=== PATIENT | female | born 1990 | race Two or more races ===

== ENCOUNTER 2017-10-26 00:34 | Emergency (ER) | payer OTHER ==
[~2017-10-26] VITALS: Ht 165.1 cm; Wt 59.0 kg
[~2017-10-26 00:34] MED LIST: GILTUSS TR TAB1 EACH PO; PROVENTIL3 ML/2.5 M IH; ZITHROMAX500 MG PO
[2017-10-26] MEDS ORDERED: PHENAGIL CH TA1 EACH PO (03:18)
== END 2017-10-26 03:37 | disposition home or self-care (01) ==
LOC: ER 00:34
DX: B34.9 Viral infection, unspecified (principal); R50.9 Fever, unspecified

== ENCOUNTER 2018-02-08 16:32 | Emergency (ER) | payer OTHER ==
[~2018-02-08] VITALS: Ht 167.6 cm; Wt 59.0 kg
[~2018-02-08 16:32] MED LIST changes: +PHENAGIL CH TA1 EACH PO
== END 2018-02-09 00:53 | disposition home or self-care (01) ==
LOC: ER 16:32
DX: K29.70 Gastritis, unspecified, without bleeding (principal); K59.09 Other constipation

== ENCOUNTER 2018-02-19 17:23 | Emergency (ER) | payer OTHER ==
[~2018-02-19] VITALS: Ht 167.6 cm; Wt 59.0 kg
== END 2018-02-19 21:53 | disposition home or self-care (01) ==
LOC: ER 17:23
DX: B34.9 Viral infection, unspecified (principal); R11.2 Nausea with vomiting, unspecified; E16.1 Other hypoglycemia

== ENCOUNTER 2018-08-29 21:13 | Emergency (ER) | payer OTHER ==
[~2018-08-29] VITALS: Ht 157.5 cm; Wt 65.8 kg
== END 2018-08-29 23:30 | disposition home or self-care (01) ==
LOC: ER 21:13
DX: S93.402A Sprain of unspecified ligament of left ankle, initial encounter (principal); S90.32XA Contusion of left foot, initial encounter; X50.3XXA Overexertion from repetitive movements, initial encounter; Y93.89 Activity, other specified; Y92.098 Other place in other non-institutional residence as the place of occurrence of the external cause; Y99.8 Other external cause status

== ENCOUNTER 2019-01-07 14:20 | Emergency (ER) | payer OTHER ==
[~2019-01-07] VITALS: Ht 167.6 cm; Wt 72.6 kg
== END 2019-01-07 20:19 | disposition home or self-care (01) ==
LOC: ER 14:20
DX: J32.8 Other chronic sinusitis (principal)

== ENCOUNTER 2019-08-23 12:28 | Emergency (ER) | payer OTHER ==
[~2019-08-23] VITALS: Ht 167.6 cm; Wt 72.6 kg
[2019-08-23] MEDS ORDERED: COLD & FLU REL180 ML (12:35)
== END 2019-08-23 14:30 | disposition home or self-care (01) ==
LOC: ER 12:28
DX: J22 Unspecified acute lower respiratory infection (principal)

== ENCOUNTER 2020-05-16 16:39 | Emergency (ER) | payer OTHER ==
[~2020-05-16] VITALS: Ht 167.6 cm; Wt 68.0 kg
[~2020-05-16 16:39] MED LIST changes: +COLD & FLU REL180 ML
== END 2020-05-16 19:36 | disposition home or self-care (01) ==
LOC: ER 16:39
DX: M62.830 Muscle spasm of back (principal); R10.32 Left lower quadrant pain; Z03.818 Encounter for observation for suspected exposure to other biological agents ruled out

== ENCOUNTER 2021-05-27 12:40 | Outpatient (CLI) | payer OTHER | END 2021-05-27 12:45 | disposition home or self-care (01) | LOC: PPH VACUNA 12:40 | PROVIDERS: ATTEND Emergency Medicine Pediatric Emergency Medicine | DX: Z23 Encounter for immunization (principal) ==

== ENCOUNTER 2022-02-17 08:00 | Outpatient (CLI) | payer OTHER | END 2022-02-17 08:05 | disposition home or self-care (01) | LOC: PPH VACUNA 08:00 | PROVIDERS: ATTEND Emergency Medicine Pediatric Emergency Medicine | DX: Z23 Encounter for immunization (principal) ==

== ENCOUNTER 2022-07-02 14:07 | Emergency (ER) | payer OTHER ==
[~2022-07-02] VITALS: Ht 167.6 cm; Wt 68.0 kg
== END 2022-07-02 22:44 | disposition home or self-care (01) ==
LOC: ER 14:07
DX: K52.9 Noninfective gastroenteritis and colitis, unspecified (principal); Z20.822 Contact with and (suspected) exposure to COVID-19; Z88.8 Allergy status to other drugs, medicaments and biological substances

== ENCOUNTER 2022-12-10 21:04 | Emergency (ER) | payer OTHER ==
[~2022-12-10] VITALS: Ht 167.6 cm; Wt 68.0 kg
== END 2022-12-10 23:09 | disposition home or self-care (01) ==
LOC: ER 21:04
DX: H10.9 Unspecified conjunctivitis (principal)

== ENCOUNTER 2023-05-18 12:25 | Emergency (ER) | payer OTHER ==
[~2023-05-18] VITALS: Ht 167.6 cm; Wt 68.0 kg
[2023-05-18] MEDS ORDERED: TUSNEL LIQUID178 ML PO (13:45)
[2023-05-18] MEDS ORDERED: PAXLOVID 300-11 EACH PO (13:45)
[2023-05-18] MEDS ORDERED: DOLOGEN CAPLET1 EACH PO (13:45)
== END 2023-05-18 14:05 | disposition home or self-care (01) ==
LOC: ER 12:25
DX: U07.1 COVID-19 (principal); Z91.041 Radiographic dye allergy status

== ENCOUNTER → 2023-08-08 | Emergency (ER) | payer OTHER ==
[~2023-08-08] VITALS: Ht 167.6 cm; Wt 72.6 kg
[~2023-08-08] MED LIST changes: +DEXAMETHASONE SODIUM PHOSP/PF 10 MG/ML VIAL IV ONE; +DOLOGEN CAPLET1 EACH PO; +PAXLOVID 300-11 EACH PO; +TUSNEL LIQUID178 ML PO
[2023-08-08 10:07] LABS: HEMATOCRIT 32.9 % (36.0-45.00); HEMOGLOBIN 10.9 g/dL (12.0-15.00); MEAN CELL VOLUME 75.8 fL (80.00-100.00); MEAN CORPUSCULAR HEMOGLOBIN 25.2 pg (27.00-32.0); MEAN CORPUSCULAR HGB CONC 33.2 g/dl (32.0-36.0); PLATELET COUNT 394 K/uL (150-450); RED BLOOD COUNT 4.34 M/uL (4.00-6.00)
[2023-08-08 11:44] LABS: URINE APPEARANCE Cloudy; URINE BACTERIA 5338.4 uL (0.0-1933); URINE BILIRRUBIN Negative (NEGATIVE); URINE BLOOD Large; URINE COLOR Yellow; URINE EPITHELIAL CELLS 66.7 uL (0.0-38.8); URINE GLUCOSE Negative (NEGATIVE); URINE LEUKOCYTE Small; URINE NITRATE Negative; URINE PROTEIN Trace (NEGATIVE); URINE RBC 89.6 uL (0.0-20.8); URINE UROBILINOGEN 0.2 E.U./dl; URINE WBC 118.5 uL (0.0-23.2)
== END | disposition home or self-care (01) ==
LOC: ER 08:52
PROVIDERS: Emergency Medicine
DX: M79.18 Myalgia, other site (principal); Z88.8 Allergy status to other drugs, medicaments and biological substances

== ENCOUNTER 2023-08-24 11:20 | Emergency (ER) | payer OTHER ==
[~2023-08-24] VITALS: Ht 167.6 cm; Wt 72.6 kg
[~2023-08-24 11:20] MED LIST changes: -DEXAMETHASONE SODIUM PHOSP/PF 10 MG/ML VIAL IV ONE
[2023-08-24] MEDS ORDERED: HYDROCODONE/CHLORPHEN P-STIREX 5 ML ML PO STA (11:59)
[2023-08-24 12:10] LABS: HEMATOCRIT 32.9 % (36.0-45.00); HEMOGLOBIN 10.8 g/dL (12.0-15.00); MEAN CELL VOLUME 75.3 fL (80.00-100.00); MEAN CORPUSCULAR HEMOGLOBIN 24.7 pg (27.00-32.0); MEAN CORPUSCULAR HGB CONC 32.8 g/dl (32.0-36.0); PLATELET COUNT 400 K/uL (150-450); RED BLOOD COUNT 4.37 M/uL (4.00-6.00); RED CELL DISTRIBUTION WIDTH 17.1 % (11.5-14.5)
== END 2023-08-24 17:59 | disposition home or self-care (01) ==
LOC: ER 11:20
PROVIDERS: General Practice
DX: B34.9 Viral infection, unspecified (principal); R53.81 Other malaise; R05.9 Cough, unspecified; Z20.822 Contact with and (suspected) exposure to COVID-19; Z91.041 Radiographic dye allergy status

== ENCOUNTER 2023-08-24 13:25 | Outpatient (CLI) | payer OTHER | END 2023-08-24 13:32 | disposition home or self-care (01) | LOC: LAB 13:25 | DX: J06.9 Acute upper respiratory infection, unspecified (principal) ==

== ENCOUNTER 2023-11-27 21:48 | Emergency (ER) | payer OTHER ==
[~2023-11-27] VITALS: Ht 167.6 cm; Wt 74.8 kg
[~2023-11-27 21:48] MED LIST changes: +DUI500 PO; +NORFLEX100MG PO; +TUSSI PRES-B L480 ML PO; +VITAMIN C500 MG PO; +ZINC 15 MG LOZE15 MG PO; +ZITHROMAX TRI-500 MG PO; +ZYRTEC10 M3 PO
[2023-11-27] MEDS ORDERED: KETOROLAC TROMETHAMINE 30 MG VIAL IM ONE (22:30)
[2023-11-27 23:06] LABS: HEMATOCRIT 34.2 % (36.0-45.00); HEMOGLOBIN 11.5 g/dL (12.0-15.00); MEAN CELL VOLUME 80.9 fL (80.00-100.00); MEAN CORPUSCULAR HEMOGLOBIN 27.3 pg (27.00-32.0); MEAN CORPUSCULAR HGB CONC 33.7 g/dl (32.0-36.0); PLATELET COUNT 338 K/uL (150-450); RED BLOOD COUNT 4.23 M/uL (4.00-6.00); RED CELL DISTRIBUTION WIDTH 16.8 % (11.5-14.5)
[2023-11-27] MEDS ORDERED: ZITHROMAX500 MG PO (23:38)
[2023-11-27] MEDS ORDERED: DICLOFENAC POTA50 MG PO (23:38)
== END 2023-11-28 00:35 ==
LOC: ER 21:48
PROVIDERS: General Practice
DX: J06.9 Acute upper respiratory infection, unspecified (principal); Z91.041 Radiographic dye allergy status; Z20.822 Contact with and (suspected) exposure to COVID-19